=== PATIENT | male | born 1935 | race Caucasian/White ===

== ENCOUNTER 2020-01-30 14:58 | Inpatient (IN) | payer OTHER, MEDICARE ==
[~2020-01-30] VITALS: Ht 157.5 cm; Wt 68.9 kg
--- NOTE | 2020-01-30 15:05 | NUR ---
DREAD from [facility] for noted weakness, confusion and hypotension, to ER bed 8, hooked to monitor, changed to hosp gown, warm blanket provided, patient AAO x 2, breathing even and unlabored. awaiting MD fernando.
--- NOTE | 2020-01-30 15:22 | NUR ---
iv line started blood drawn and sent to lab.
--- NOTE | 2020-01-30 15:33 | NUR ---
DR MORENO AT BEDSIDE FOR EVAL
--- NOTE | 2020-01-30 15:47 | NUR ---
radiology at bedside for chest xray.
[2020-01-30 15:53] LABS: BASOPHILS # (AUTO) 0.1 /CMM (0.0-0.2); EOSINOPHILS % (AUTO) 1.8 % (0.0-6.0); HEMATOCRIT 38 % (39-51); HEMOGLOBIN 12.7 g/dL (13.5-17.5); LYMPHOCYTES # (AUTO) 1.4 /CMM (0.8-4.8); LYMPHOCYTES % (AUTO) 14.2 % (20.0-44.0); MEAN CORPUSCULAR HGB CONC 34 g/dl (31.0-36.0); MEAN CORPUSCULAR VOLUME 88 fL (80-96); MONOCYTES # (AUTO) 0.9 /CMM (0.1-1.30); MONOCYTES % (AUTO) 9.2 % (2.0-12.0); NEUTROPHILS # (AUTO) 7.1 /CMM (1.8-8.9); NEUTROPHILS % (AUTO) 73.8 % (43.0-81.0); PLATELET COUNT (AUTO) 277 /CMM (150-450); RED BLOOD CELL COUNT(AUTO) 4.31 MIL/uL (4.5-6.0); WHITE BLOOD COUNT (AUTO) 9.6 K/uL (4.3-11.0)
[2020-01-30] MEDS ORDERED: LISI-603 PO (15:54)
[2020-01-30] MEDS ORDERED: APIX5TAB PO (15:54)
[2020-01-30] MEDS ORDERED: FURO-145 PO (15:54)
[2020-01-30] MEDS ORDERED: BISA10SU61 RC (15:54)
[2020-01-30] MEDS ORDERED: DIGO125T PO (15:54)
[2020-01-30] MEDS ORDERED: MAGN400O6 PO (15:54)
[2020-01-30] MEDS ORDERED: NA P133E RC (15:54)
[2020-01-30] MEDS ORDERED: IPRA3AMP23 IH (15:54)
[2020-01-30] MEDS ORDERED: ATOR20TA PO (15:54)
[2020-01-30] MEDS ORDERED: SPIR25TA6 PO (15:54)
[2020-01-30] MEDS ORDERED: MONT10TA22 PO (15:54)
[2020-01-30] MEDS ORDERED: ACET-2605 PO (15:54)
[2020-01-30] MEDS ORDERED: POTA20TA83 PO (15:54)
[2020-01-30] MEDS ORDERED: BUDE10.2 IH (15:54)
[2020-01-30] MEDS ORDERED: CARV6.25 PO (15:54)
[2020-01-30] MEDS ORDERED: MULT-447 PO (15:54)
--- NOTE | 2020-01-30 15:54 | NUR ---
RESHMA THAKKAR, PT CAME FROM [facility] ROOM 33A, PCP DR. DEVINE,[facility]
[2020-01-30] MEDS ORDERED: IV NS 0.9% 500 ML BAG IV ONE (16:00)
[2020-01-30 16:01] LABS: CALCIUM, SERUM 8.9 mg/dL (8.5-10.1); CARBON DIOXIDE 29 mmol/L (21-32); CHLORIDE 104 mmol/L (98-107); CREATININE 1.8 mg/dL (0.6-1.3); GLUCOSE 108 mg/dL (74-106); POTASSIUM 4.8 mmol/L (3.5-5.1); SODIUM SERUM 139 mmol/L (136-145); UREA NITROGEN, BLOOD 26 mg/dL (7-18)
[2020-01-30 16:14] LABS: ALANINE AMINOTRANSFERASE 15 U/L (12-78); ALBUMIN 3.9 g/dL (3.4-5.0); ALKALINE PHOSPHATASE 94 U/L (46-116); ASPARTATE AMINOTRANSFERASE 15 U/L (15-37); B-TYPE NATRIURETIC PEPTIDE 4514 PG/ML (0-125); BILIRUBIN,TOTAL 0.7 mg/dL (0.2-1.0); TOTAL PROTEIN, SERUM 7.6 g/dL (6.4-8.2)
--- NOTE | 2020-01-30 16:29 | NUR ---
covid swab done and sent to lab
[2020-01-30 16:52] LABS: C-REACTIVE PROTEIN 0.7 mg/dL (0.0-0.9); CREATINE KINASE, TOTAL 59 U/L (39-308)
[2020-01-30 16:54] LABS: D-DIMER 0.75 mg/L(FEU (0.17-0.50)
--- NOTE | 2020-01-30 17:30 | NUR ---
Jennifer KIRAN gave authorization to admit tracking number #[id number]
--- NOTE | 2020-01-30 17:33 | NUR ---
CALLED FOR TELE BED.
--- NOTE | 2020-01-30 17:36 | NUR ---
paged panel for admission
--- NOTE | 2020-01-30 18:12 | NUR ---
report given to Fabby HUGGINS for digna
[2020-01-30] MEDS ORDERED: ACETAMINOPHEN 325 MG TABLET PO PRN (18:30)
[2020-01-30] MEDS ORDERED: HYDROCODONE/APAP 5/325MG 1 EACH TABLET PO PRN (18:30)
[2020-01-30] MEDS ORDERED: Z GUARD REMEDY 2 OZ OINT TP PRN (18:30)
[2020-01-30] MEDS ORDERED: ONDANSETRON HCL/PF 4 MG/2 ML VIAL IVP PRN (18:30)
--- NOTE | 2020-01-30 18:36 | NUR ---
PROMOTION PRODUCER NOTES RECEIVED NEW ADMISSION IN MEDICALLY STALE CONDITION. VS BP: 168/77 TEMP: 98.3 HR: 67 O2 97% ON ROOM AIR, RESP 18 WILL ENDORSE THE CARE TO ZIGZAG TUNNEL ELASTIC OPERATOR NURSE.
--- NOTE | 2020-01-30 18:46 | NUR ---
wheeled patient via gurney accompanied by RN and emt in no distress. RN at bedside to assume care.
[2020-01-30] MEDS ORDERED: IPRATROPIUM NEB FS 0.5 MG/2.5 ML AMPUL.NEB NEB PRN (19:00)
[2020-01-30] MEDS ORDERED: ALBUTEROL FS 2.5 MG/0.5 ML VIAL.NEB NEB PRN (19:00)
[2020-01-30] MEDS ORDERED: FUROSEMIDE 40 MG/4 ML VIAL IV ONE (19:00)
[2020-01-30 19:17] LABS: C-REACTIVE PROTEIN 1.1 mg/dL (0.0-0.9)
--- NOTE | 2020-01-30 19:30 | NUR ---
HOP TRAINER OPENING NOTES: Received pt in bed awake, A&Ox1, very confused. On isolation precautions for R/O Covid. On tele monitor reading A-fib. On RA, tolerating well. No SOB or respiratory distress noted. Pt brought in from ER during morning shift. IV site on RW #20 patent and flushed. Dressing c/d/i. Head to toe assessment and skin check complete. No issues noted. Safety measures in place. Will continue to monitor.
[2020-01-30 19:38] LABS: DIGOXIN 0.99 ng/mL (0.90-2.00)
[2020-01-30 20:00] VITALS: BP 148/88
--- NOTE | 2020-01-30 20:15 | NUR ---
RN NOTE: 1939: Pt removing tele leads, gown and attempting to walk out of room stating "I need to go to the store". Walked pt back to room and reoriented pt to room, and call light. 1944: Pt continuing to remove leads and walk out of room. Paged FRANKY Kearney for order for SALES REPRESENTATIVE SALES MANAGER restraints. 1948: Orders received for restraints. Noted, carried out and applied restraints. Will continue to monitor.
--- NOTE | 2020-01-30 21:29 | NUR ---
Endorsed to BHAVNA Min for MAURISIO.
--- NOTE | 2020-01-30 21:30 | NUR ---
Received endorsement report from BHAVNA Truong for continuation of care
[2020-01-30] MEDS: ATORVASTATIN 10 MG TABLET PO SCH (22:24)
[2020-01-30] MEDS: MONTELUKAST SODIUM (10MG) 10 MG TABLET PO SCH (22:24)
[2020-01-30] MEDS: ZOLPIDEM TARTRATE 5 MG TABLET PO PRN (23:01)
[2020-01-31] VITALS (7 sets, daily range): BP systolic 123–162; BP diastolic 50–106
[2020-01-31 06:28] LABS: BASOPHILS # (AUTO) 0.1 /CMM (0.0-0.2); BASOPHILS % (AUTO) 0.8 % (0.0-2.0); EOSINOPHILS % (AUTO) 2.4 % (0.0-6.0); HEMATOCRIT 36 % (39-51); HEMOGLOBIN 12.2 g/dL (13.5-17.5); LYMPHOCYTES # (AUTO) 2.5 /CMM (0.8-4.8); LYMPHOCYTES % (AUTO) 28.4 % (20.0-44.0); MEAN CORPUSCULAR HGB CONC 34 g/dl (31.0-36.0); MEAN CORPUSCULAR VOLUME 87 fL (80-96); MONOCYTES # (AUTO) 0.9 /CMM (0.1-1.30); MONOCYTES % (AUTO) 9.7 % (2.0-12.0); NEUTROPHILS # (AUTO) 5.2 /CMM (1.8-8.9); NEUTROPHILS % (AUTO) 58.7 % (43.0-81.0); PLATELET COUNT (AUTO) 262 /CMM (150-450); RED BLOOD CELL COUNT(AUTO) 4.21 MIL/uL (4.5-6.0); WHITE BLOOD COUNT (AUTO) 8.9 K/uL (4.3-11.0)
[2020-01-31 06:44] LABS: CHOLESTEROL 110 mg/dL (<200); HDL CHOLESTEROL 40 mg/dL (40-60); LDL 60 mg/dL (0-99); TRIGLYCERIDES 101 mg/dL (30-150)
--- NOTE | 2020-01-31 06:45 | NUR ---
RN CLOSING NOTE: PATIENT REMAINS IN ROOM. NO SIGNS OF RESPIRATORY DISTRESS. SAFETY MEASURES IMPLEMENTED, BED IN LOWEST POSITION, LOCKED, SIDE RAILS UP, CALL LIGHT WITHIN REACH. ALL NEEDS AND ORDERS ADDRESSED DURING THE SHIFT. ALL DUE MEDS GIVEN ORDERED & SCHEDULED ; PATIENT TOLERATED WELL.PATIENT KEPT CLEAN AND COMFORTABLE WITHIN THE SHIFT. ENDORSED TO INCOMING SHIFT RN FOR CONTINUITY OF CARE.
[2020-01-31 06:49] LABS: CALCIUM, SERUM 9.1 mg/dL (8.5-10.1); CARBON DIOXIDE 27 mmol/L (21-32); CHLORIDE 104 mmol/L (98-107); CREATININE 1.6 mg/dL (0.6-1.3); GLUCOSE 105 mg/dL (74-106); PHOSPHORUS 4.1 mg/dL (2.5-4.9); POTASSIUM 4.2 mmol/L (3.5-5.1); SODIUM SERUM 140 mmol/L (136-145); UREA NITROGEN, BLOOD 29 mg/dL (7-18)
--- NOTE | 2020-01-31 07:30 | NUR ---
RN OPENING NOTE: RECEIVED PATIENT IN ROOM SLEEPING.PATIENT IS ON ROOM AIR, NO SIGNS OF RESPIRATORY DISTRESS. TELE NOTED READING AFIB @ 59-62 .NOTED IV RIGHT WRIST # 20 PATENT AND INTACT. SAFETY MEASURES IMPLEMENTED, BED IN LOWEST POSITION, LOCKED, SIDE RAILS UP, CALL LIGHT WITHIN REACH.WILL CONTINUE TO MONITOR.
[2020-01-31] MEDS: MULTIVITAMINS,THERAGRAN 1 UDTAB TABLET PO SCH (08:35)
[2020-01-31] MEDS: CARVEDILOL 6.25 MG TABLET PO SCH ×2 (08:37→17:12)
[2020-01-31] MEDS ORDERED: SPIRONOLACTONE 25 MG TABLET PO SCH (09:00)
[2020-01-31] MEDS: FLUTICASONE/VILANTEROL 1 EACH BLST.W.DEV IH SCH (09:10)
--- NOTE | 2020-01-31 11:40 | NUR ---
BHAVNA NOTES PATIENT LEFT AGAINST MEDICAL ADVICE (AMA). NOTIFIED. PATIENT SIGNED AMA. PATIENT CALLED A TAXI. COMMAND AND CONTROL SYSTEMS INTEGRATOR WHEELED PATIENT TO SECURITY AND PT TOOK TAXI. Addendum: 01/31/20 at 1926 by NEETA CHAUDHARY RN DISREGARD INCORRECT PATIENT
[2020-01-31] MEDS: APIXABAN 5 MG TABLET PO SCH ×2 (12:31→17:13)
[2020-01-31] MEDS: DIGOXIN 0.125 MG TABLET PO SCH (12:36)
--- NOTE | 2020-01-31 19:27 | NUR ---
N CLOSING NOTE: PATIENT REMAINS IN ROOM .PATIENT IS IN ROOM AIR SATURATING AT 94%. NO SIGNS OF RESPIRATORY DISTRESS. SAFETY MEASURES IMPLEMENTED, BED IN LOWEST POSITION, LOCKED, SIDE RAILS UP, CALL LIGHT WITHIN REACH. ALL NEEDS AND ORDERS ADDRESSED DURING THE SHIFT. ALL DUE MEDS GIVEN ORDERED & SCHEDULED ; PATIENT TOLERATED WELL.PATIENT KEPT CLEAN AND COMFORTABLE WITHIN THE SHIFT. ENDORSED TO INCOMING SHIFT RN FOR CONTINUITY OF CARE.
[2020-01-31] MEDS: MONTELUKAST SODIUM (10MG) 10 MG TABLET PO SCH (21:29)
[2020-01-31] MEDS: ATORVASTATIN 10 MG TABLET PO SCH (21:29)
[2020-02-01] VITALS (7 sets, daily range): BP systolic 116–157; BP diastolic 55–86
[2020-02-01 06:45] LABS: BASOPHILS # (AUTO) 0.1 /CMM (0.0-0.2); BASOPHILS % (AUTO) 1.2 % (0.0-2.0); EOSINOPHILS % (AUTO) 3.2 % (0.0-6.0); HEMATOCRIT 36 % (39-51); HEMOGLOBIN 12.2 g/dL (13.5-17.5); LYMPHOCYTES # (AUTO) 2.1 /CMM (0.8-4.8); LYMPHOCYTES % (AUTO) 28.3 % (20.0-44.0); MEAN CORPUSCULAR HGB CONC 34 g/dl (31.0-36.0); MEAN CORPUSCULAR VOLUME 87 fL (80-96); MONOCYTES # (AUTO) 0.7 /CMM (0.1-1.30); MONOCYTES % (AUTO) 9.8 % (2.0-12.0); NEUTROPHILS # (AUTO) 4.2 /CMM (1.8-8.9); NEUTROPHILS % (AUTO) 57.5 % (43.0-81.0); PLATELET COUNT (AUTO) 221 /CMM (150-450); RED BLOOD CELL COUNT(AUTO) 4.16 MIL/uL (4.5-6.0); WHITE BLOOD COUNT (AUTO) 7.3 K/uL (4.3-11.0)
[2020-02-01 06:50] LABS: ALBUMIN 3.6 g/dL (3.4-5.0); BILIRUBIN,TOTAL 0.7 mg/dL (0.2-1.0); CALCIUM, SERUM 8.4 mg/dL (8.5-10.1); CREATININE 1.1 mg/dL (0.6-1.3); MAGNESIUM 2.3 mg/dL (1.8-2.4); PHOSPHORUS 3.4 mg/dL (2.5-4.9); TOTAL PROTEIN, SERUM 7.2 g/dL (6.4-8.2)
--- NOTE | 2020-02-01 07:10 | NUR ---
RN OPENING NOTE: RECEIVED PATIENT IN ROOM SLEEPING.PATIENT IS ON ROOM AIR, NO SIGNS OF RESPIRATORY DISTRESS. TELE NOTED READING AFIB @ 59-62 .NOTED IV RIGHT HAND # 22, PATENT AND INTACT. SAFETY MEASURES IMPLEMENTED, BED IN LOWEST POSITION, LOCKED, SIDE RAILS UP X 2, CALL LIGHT WITHIN REACH.WILL CONTINUE TO MONITOR.
[2020-02-01] MEDS: MULTIVITAMINS,THERAGRAN 1 UDTAB TABLET PO SCH (08:20)
[2020-02-01] MEDS: APIXABAN 5 MG TABLET PO SCH ×2 (08:40→17:38)
[2020-02-01] MEDS: CARVEDILOL 6.25 MG TABLET PO SCH ×2 (08:41→17:38)
[2020-02-01] MEDS: FLUTICASONE/VILANTEROL 1 EACH BLST.W.DEV IH SCH (09:10)
[2020-02-01 09:43] LABS: IRON, SERUM 62 ug/dl (50-175); TOTAL IRON BINDING CAPACITY 239 ug/dl (250-450)
[2020-02-01 09:57] LABS: FERRITIN 56 ng/mL (8-388)
[2020-02-01] MEDS: DIGOXIN 0.125 MG TABLET PO SCH (13:12)
--- NOTE | 2020-02-01 18:41 | NUR ---
RN CLOSING NOTES- WILL ENDORSE PATIENT TO PM NURSE. PATIENT REMAINS IN ROOM COMFORTABLE . ROOM AIR SATURATING AT 100 %. PATIENT ON TELE READING AFIB @ 56-61'S. NO SIGNS OF RESPIRATORY DISTRESS. RIGHT HAND IV #22. SAFETY MEASURES IMPLEMENTED, BED IN LOWEST POSITION, LOCKED, SIDE RAILS UP X 2., CALL LIGHT WITHIN EASY REACH. ALL NEEDS AND ORDERS ADDRESSED AND MET DURING THE SHIFT.
[2020-02-01] MEDS: ATORVASTATIN 10 MG TABLET PO SCH (21:19)
[2020-02-01] MEDS: MONTELUKAST SODIUM (10MG) 10 MG TABLET PO SCH (21:19)
[2020-02-01] MEDS: ZOLPIDEM TARTRATE 5 MG TABLET PO PRN (21:20)
[2020-02-02] VITALS (9 sets, daily range): BP systolic 121–157; BP diastolic 72–92
[2020-02-02 06:24] LABS: BASOPHILS # (AUTO) 0.1 /CMM (0.0-0.2); BASOPHILS % (AUTO) 1.1 % (0.0-2.0); EOSINOPHILS % (AUTO) 3.4 % (0.0-6.0); HEMATOCRIT 40 % (39-51); HEMOGLOBIN 13.1 g/dL (13.5-17.5); LYMPHOCYTES % (AUTO) 24.6 % (20.0-44.0); MEAN CORPUSCULAR HGB CONC 33 g/dl (31.0-36.0); MEAN CORPUSCULAR VOLUME 89 fL (80-96); MONOCYTES # (AUTO) 0.7 /CMM (0.1-1.30); MONOCYTES % (AUTO) 8.9 % (2.0-12.0); NEUTROPHILS # (AUTO) 5.1 /CMM (1.8-8.9); PLATELET COUNT (AUTO) 207 /CMM (150-450); RED BLOOD CELL COUNT(AUTO) 4.53 MIL/uL (4.5-6.0); WHITE BLOOD COUNT (AUTO) 8.3 K/uL (4.3-11.0)
[2020-02-02 07:06] LABS: ALBUMIN 3.5 g/dL (3.4-5.0); BILIRUBIN,TOTAL 0.8 mg/dL (0.2-1.0); CALCIUM, SERUM 9.1 mg/dL (8.5-10.1); MAGNESIUM 2.6 mg/dL (1.8-2.4); PHOSPHORUS 3.2 mg/dL (2.5-4.9); POTASSIUM 4.7 mmol/L (3.5-5.1); TOTAL PROTEIN, SERUM 7.8 g/dL (6.4-8.2)
--- NOTE | 2020-02-02 07:15 | NUR ---
RN OPENING NOTE PATIENT IN BED, NOT IN ACUTE DISTRESS. DENIES ANY PAIN OR DISCOMFORT. BREATHING EVEN, NO SOB NOTED. ALL NEEDS ATTENDED. SAFETY MEASURES INTACT. WILL CONT TO MONITOR
[2020-02-02] MEDS: CARVEDILOL 6.25 MG TABLET PO SCH ×2 (10:31→17:00)
[2020-02-02] MEDS: MULTIVITAMINS,THERAGRAN 1 UDTAB TABLET PO SCH (10:31)
[2020-02-02] MEDS: APIXABAN 5 MG TABLET PO SCH ×2 (10:32→17:46)
[2020-02-02] MEDS: DIGOXIN 0.125 MG TABLET PO SCH (13:17)
[2020-02-02] MEDS: FLUTICASONE/VILANTEROL 1 EACH BLST.W.DEV IH SCH (13:17)
--- NOTE | 2020-02-02 19:20 | NUR ---
RN CLOSING NOTES- PATIENT REMAINS IN ROOM COMFORTABLE . ROOM AIR SATURATING AT 100 %. PATIENT ON TELE READING AFIB @ 56-61'S. NO SIGNS OF RESPIRATORY DISTRESS. RIGHT HAND IV #22 INTACT. SAFETY MEASURES IMPLEMENTED, BED IN LOWEST POSITION, LOCKED, SIDE RAILS UP X 2., CALL LIGHT WITHIN EASY REACH. ALL NEEDS AND ORDERS ADDRESSED AND MET DURING THE SHIFT. ENDORSED TO HEALTH IT SPECIALIST NURSE
[2020-02-02] MEDS: ATORVASTATIN 10 MG TABLET PO SCH (21:06)
[2020-02-02] MEDS: MONTELUKAST SODIUM (10MG) 10 MG TABLET PO SCH (21:06)
[2020-02-03] VITALS (8 sets, daily range): BP systolic 115–156; BP diastolic 75–88
--- NOTE | 2020-02-03 06:30 | NUR ---
RN RESOURCE NURSE NOTES AWAKE & RESPONSIVE. NOT IN ANY DISTRESS. NO SOB NOTED. DENIES ANY PAIN OR DISCOMFORT AT THIS TIME. ON TELE AFIB @ 60S WITH IV-HL PATENT & INTACT. AM CARE DONE. MONITORED ACCORDINGLY. CALL LIGHT WITHIN REACH. BED IN LOWEST POSITION. SR UP X 2 WITH BED ALARM ON FOR SAFETY. WILL ENDORSE TO NEXT SHIFT.
--- NOTE | 2020-02-03 07:25 | NUR ---
DENTAL ASSOCIATE NOTES RECEIVED PATIENT IN BED, ALERT AND AWAKE ORIENTED X2. HOB ELEVATED. NO SOB OBSERVED. ON ROOM AIR WITH SPO2 OF 98%. DENIES ANY C/O PAIN NOR DISCOMFORT AT THIS TIME. RIGHT HAND # 20 SL INTACT AND PATENT. BED IN LOWEST POSITION, LOCKED. LESLY SIDERAILS UP X2. BED ALARM ON. CALL LIGHT WITHIN REACH.
[2020-02-03] MEDS: CARVEDILOL 6.25 MG TABLET PO SCH ×2 (08:35→17:29)
[2020-02-03] MEDS: MULTIVITAMINS,THERAGRAN 1 UDTAB TABLET PO SCH (08:35)
[2020-02-03] MEDS: FLUTICASONE/VILANTEROL 1 EACH BLST.W.DEV IH SCH (08:35)
[2020-02-03] MEDS: APIXABAN 5 MG TABLET PO SCH ×2 (08:36→17:30)
[2020-02-03] MEDS: DIGOXIN 0.125 MG TABLET PO SCH (12:18)
--- NOTE | 2020-02-03 18:40 | NUR ---
MS RN NOTES PATIENT RESTING COMFORTABLY IN BED WATCHING TV. HOB ELEVATED. NO S/S OF RESPIRATORY DISTRESS.REMAIN ON ROOM AIR WITH SPO2 OF 98-100%. NO COUGH/SOB/FEVER OBSERVED DURING THE SHIFT. DENIES ANY C/O PAIN NOR DISCOMFORT AT THIS TIME. RIGHT HAND # 20 SL INTACT AND PATENT. CONTACT/DROPLET PRECAUTIONS OBSERVED AT ALL TIMES. BED IN LOWEST POSITION, LOCKED. BED SIDERAILS UP X2. BED ALARM ON. CALL LIGHT WITHIN REACH. IN NO APPARENT DISTRESS.
--- NOTE | 2020-02-03 19:00 | NUR ---
RECEIVED PATIENT IN HIS BED ALERT AND ORIENTATED TO SELF AND SURRONDINGS. WRIST RESTRAINTS OFF NOTED HOB ELEVATED OFFERED HIM WATER AND HE DRANK W/O PROBLEMS. ENJOYS CONVERSATIONS BED ALARM ON
[2020-02-03] MEDS: ATORVASTATIN 10 MG TABLET PO SCH (21:36)
[2020-02-03] MEDS: MONTELUKAST SODIUM (10MG) 10 MG TABLET PO SCH (21:36)
[2020-02-04] VITALS: BP 125/60
[2020-02-04 04:00] VITALS: BP 134/75
--- NOTE | 2020-02-04 06:18 | NUR ---
ENDING NOTES: CONFUSED ANT TIMES HE WILL SWING HIS ARM AND TRY TO KICK THE NURSE AND CALL HER NAMES. BED ALARM ON HE WILL ATTEMPT TO GET OOB AND UNABLE TO TALK HIM IN TO GOING BACK TO BED. ALOOWED HIM TO WALK AROUND HIS ROOM WITH NURSE AT HIS SIDE, UNSTEADY GAIT HE IS INCONTINENT KEPT CLEAN AND DRY.
--- NOTE | 2020-02-04 07:30 | NUR ---
RN OPENING NOTES RECEIVED PATIENT RESTING IN BED. A/O X2 WITH PERIODS OF CONFUSION. PER PM NURSE PATIENT SWINGS HIS ARMS AT NURSES. DURING MY ASSESSMENT, PATIENT WAS COOPERATIVE BUT CONFUSED. PATIENT IS ON ROOM AIR, SATURATING WELL, NO RESPIRATORY DISTRESS NOTED. BREATHING IS EVEN AND UNLABORED. PATIENT IS FALL RISK, PRECAUTIONS TAKEN, BED ALARMED, LOCKED AND LOWERED, SAFETY MAINTAINED, CALL LIGHT WITHIN REACH, WILL CONTINUE TO MONITOR CLOSELY.
[2020-02-04 08:00] VITALS: BP 175/96
[2020-02-04] MEDS: CARVEDILOL 6.25 MG TABLET PO SCH ×2 (09:00→16:57)
[2020-02-04] MEDS: MULTIVITAMINS,THERAGRAN 1 UDTAB TABLET PO SCH (09:01)
[2020-02-04] MEDS: APIXABAN 5 MG TABLET PO SCH ×2 (09:02→16:57)
[2020-02-04] MEDS: FLUTICASONE/VILANTEROL 1 EACH BLST.W.DEV IH SCH (09:03)
--- NOTE | 2020-02-04 11:21 | NUR ---
RN NOTE CALLED LAB TO FOLLOW UP WITH THE COVID RESULTS. UNKNOWN WHY THE RESULT IS STILL PENDING, LAB WILL FOLLOW UP AND LET ME KNOW.
[2020-02-04 12:00] VITALS: BP_SYST 144; BP_SYST 151; BP_DIAS 77; BP_DIAS 85
[2020-02-04] MEDS: DIGOXIN 0.125 MG TABLET PO SCH (12:28)
--- NOTE | 2020-02-04 13:38 | NUR ---
PATIENT COVID NEGATIVE,NGHIA PADRON NOTIFIED ,NURSING SUP NOTIFIED ,PER CM NELIDA NEED CLEARANCE FROM [facility] AND MIGHT TAKE A DAY,NURSING SUP NOTIFIED ,AWAITS CLEAN RM TO NON COVID UNIT.
--- NOTE | 2020-02-04 14:57 | NUR ---
RN NOTE PATIENT COVID RESULTS CAME BACK NEGATIVE. TRANSFERRED PATIENT TO ROOM 202, CLEAN UNIT. ENDORSED TO DEDRICK HUGGINS FOR CONTINUITY OF CARE. SAFETY MAINTAINED, CALL LIGHT WITHIN REACH, ALL PATIENT NEEDS MET.
--- NOTE | 2020-02-04 15:00 | NUR ---
MS RN NOTE PATIENT ARRIVED BY WHEELCHAIR FROM [facility]. REPORT RECEIVED FROM EDUARDO HUGGINS. ASSISTED PATIENT INTO BED. PATIENT IN BED RESTING COMFORTABLY. PATIENT IN NO ACUTE DISTRESS. NO SOB NOTED. PATIENT BREATHING IS EVEN AND UNLABORED. PATIENT BED ALARM IS ON. SAFETY PRECAUTIONS IN PLACE. PATIENT BED IS LOCKED AND IN LOWEST POSITION. CALL LIGHT WITHIN REACH. WILL CONTINUE TO MONITOR.
[2020-02-04 16:00] VITALS: BP 112/68
--- NOTE | 2020-02-04 18:49 | NUR ---
MS RN CLOSING NOTE PATIENT IN BED RESTING COMFORTABLY. PATIENT IN NO ACUTE DISTRESS. NO SOB NOTED. PATIENT BREATHING IS EVEN AND UNLABORED. PATIENT KEPT CLEAN, DRY AND COMFORTABLE THROUGHOUT SHIFT. PATIENT BED ALARM IS ON. SAFETY PRECAUTIONS IN PLACE. PATIENT BED IS LOCKED AND IN LOWEST POSITION. CALL LIGHT WITHIN REACH. WILL ENDORSE CARE TO PM SHIFT FOR MAURISIO.
[2020-02-04 20:00] VITALS: BP 130/66
--- NOTE | 2020-02-04 20:00 | NUR ---
MS RN OPENING NOTES RECEIVED PATIENT IN BED, AWAKE, CONFUSED A/0 X2, BREATHING AT ROOM AIR, UNLABORED BREATHING, NO SIGNS OF RESPIRATORY DISTRESS, IV ACCESS RIGH HAND #20G, PATIENT BED ALARM IS ON, SIDE RAILS UP FOR SAFETY.
[2020-02-04] MEDS: ATORVASTATIN 10 MG TABLET PO SCH (21:13)
[2020-02-04] MEDS: MONTELUKAST SODIUM (10MG) 10 MG TABLET PO SCH (21:14)
--- NOTE | 2020-02-05 06:29 | NUR ---
MS RN CLOSING NOTES ENDORSED PATIENT IN BED, AWAKE, CONFUSED A/0 X2, BREATHING AT ROOM AIR, UNLABORED BREATHING, NO SIGNS OF RESPIRATORY DISTRESS, IV ACCESS RIGH HAND #20G, NO REDNESS OR INFILTRATION NOTED, PATIENT BED ALARM IS ON, SIDE RAILS UP FOR SAFETY, DUE MEDS GIVEN.
--- NOTE | 2020-02-05 07:23 | NUR ---
MS RN OPENING NOTE PATIENT IN BED RESTING COMFORTABLY. PATIENT IN NO ACUTE DISTRESS. NO SOB NOTED. PATIENT BREATHING IS EVEN AND UNLABORED. PATIENT BED ALARM IS ON. SAFETY PRECAUTIONS IN PLACE. PATIENT BED IS LOCKED AND IN LOWEST POSITION. CALL LIGHT WITHIN REACH. WILL CONTINUE TO MONITOR.
[2020-02-05 08:00] VITALS: BP 134/70
[2020-02-05] MEDS: FLUTICASONE/VILANTEROL 1 EACH BLST.W.DEV IH SCH (08:09)
[2020-02-05] MEDS: APIXABAN 5 MG TABLET PO SCH ×2 (08:10→16:56)
[2020-02-05] MEDS: MULTIVITAMINS,THERAGRAN 1 UDTAB TABLET PO SCH (08:10)
[2020-02-05] MEDS: CARVEDILOL 6.25 MG TABLET PO SCH ×2 (08:10→16:57)
[2020-02-05 16:00] VITALS: BP 115/81
--- NOTE | 2020-02-05 16:00 | NUR ---
MS RN NOTE PER ASSET CARD CLERK NELIDA PATIENT STILL PENDING CLEARANCE TO SNF. PATIENT IN NO ACUTE DISTRESS. NO SOB NOTED. PATIENT BREATHING IS EVEN AND UNLABORED. WILL CONTINUE TO MONITOR.
--- NOTE | 2020-02-05 18:30 | NUR ---
MS RN CLOSING NOTE PATIENT IN BED RESTING COMFORTABLY. PATIENT IN NO ACUTE DISTRESS. NO SOB NOTED. PATIENT BREATHING IS EVEN AND UNLABORED. PATIENT KEPT CLEAN, DRY, AND COMFORTABLE THROUGHOUT SHIFT. PATIENT BED ALARM IS ON. SAFETY PRECAUTIONS IN PLACE. PATIENT BED IS LOCKED AND IN LOWEST POSITION. CALL LIGHT WITHIN REACH. WILL ENDORSE CARE TO PM SHIFT FOR MAURISIO.
--- NOTE | 2020-02-05 19:24 | NUR ---
MS/RN OPENING NOTES: RECEIVED PATIENT IN BED RESTING COMFORTABLY. VERBALLY RESPONSIVE AND TORRIE TO MAKE NEEDS KNOWN. A/OX2-3 WITH EPISODES OF CONFUSION. PATIENT IN NO ACUTE DISTRESS. NO SOB NOTED. PATIENT BREATHING IS EVEN AND UNLABORED. PATIENT BED ALARM IS ON. SAFETY PRECAUTIONS ARE IN PLACE. PATIENT BED IS LOCKED AND IN LOWEST POSITION. CALL LIGHT WITHIN REACH. WILL CONTINUE TO MONITOR PT. ACCORDINGLY.
[2020-02-05 20:11] VITALS: BP 129/68
[2020-02-05 20:19] VITALS: BP 129/68
[2020-02-05] MEDS: ATORVASTATIN 10 MG TABLET PO SCH (21:10)
[2020-02-05] MEDS: MONTELUKAST SODIUM (10MG) 10 MG TABLET PO SCH (21:10)
--- NOTE | 2020-02-06 | NUR ---
MS/RN NOTES: PT. TRANSFERRED TO ROOM 204-1. PT STABLE.
[2020-02-06 06:50] LABS: BASOPHILS # (AUTO) 0.1 /CMM (0.0-0.2); BASOPHILS % (AUTO) 1.4 % (0.0-2.0); EOSINOPHILS % (AUTO) 3.3 % (0.0-6.0); HEMATOCRIT 33 % (39-51); HEMOGLOBIN 11.1 g/dL (13.5-17.5); LYMPHOCYTES # (AUTO) 2.2 /CMM (0.8-4.8); LYMPHOCYTES % (AUTO) 27.7 % (20.0-44.0); MEAN CORPUSCULAR HGB CONC 33 g/dl (31.0-36.0); MEAN CORPUSCULAR VOLUME 87 fL (80-96); MONOCYTES # (AUTO) 0.7 /CMM (0.1-1.30); MONOCYTES % (AUTO) 9.5 % (2.0-12.0); NEUTROPHILS # (AUTO) 4.6 /CMM (1.8-8.9); NEUTROPHILS % (AUTO) 58.1 % (43.0-81.0); PLATELET COUNT (AUTO) 209 /CMM (150-450); WHITE BLOOD COUNT (AUTO) 7.9 K/uL (4.3-11.0)
--- NOTE | 2020-02-06 06:55 | NUR ---
MS/RN CLOSING NOTES: PATIENT REMAINS IN BED RESTING COMFORTABLY. SLEPT WELL THROUGH THE NIGHT, KEPT WARM AND COMFORTABLE, CLEAN AND DRY. REMAINS VERBALLY RESPONSIVE AND TORRIE TO MAKE NEEDS KNOWN. A/OX2-3. ALL NEEDS MET AND RENDERED. PATIENT IN NO ACUTE DISTRESS. NO SOB NOTED. PATIENT BREATHING IS EVEN AND UNLABORED. GAVE PT PRUNE JUICE, WILL ENDORSE TO DAY SHIFT TO GIVE STOOL SOFTENER IF PT DOESN'T HAVE BM. PATIENT BED ALARM IS ON. SAFETY PRECAUTIONS ARE KEPT IN PLACE. PATIENT BED IS LOCKED AND IN LOWEST POSITION. CALL LIGHT WITHIN REACH. WILL ENDORSE TO AM SHIFT FOR MAURISIO.
[2020-02-06 07:08] LABS: ALBUMIN 3.3 g/dL (3.4-5.0); BILIRUBIN,TOTAL 0.6 mg/dL (0.2-1.0); CALCIUM, SERUM 8.5 mg/dL (8.5-10.1); MAGNESIUM 2.2 mg/dL (1.8-2.4); PHOSPHORUS 3.1 mg/dL (2.5-4.9); TOTAL PROTEIN, SERUM 6.5 g/dL (6.4-8.2)
--- NOTE | 2020-02-06 07:26 | NUR ---
MS RN NOTES RECEIVED PT IN BED, ASLEEP, EASILY AROUSED, A/O X2-3. PT TOLERATING RA, WITH NO ACUTE RESPIRATORY DISTRESS NOTED. PT DENIES ANY PAIN OR DISCOMFORT AT THIS TIME. PT DENIES ANY CONCERNS OR QUESTIONS WELL. R HAND G20, FLUSHED WITH NS, INTACT AND OPERATIONAL. PT KEPT COMFORTABLE IN BED. CALL LIGHT KEPT WITHIN REACH. PT'S BED IN LOWEST, LOCKED POSITION WITH SR X3. WILL CONTINUE PLAN OF CARE.
[2020-02-06 08:00] VITALS: BP 152/75
[2020-02-06] MEDS: CARVEDILOL 6.25 MG TABLET PO SCH ×2 (08:35→17:05)
[2020-02-06] MEDS: APIXABAN 5 MG TABLET PO SCH ×2 (08:37→17:06)
[2020-02-06] MEDS: MULTIVITAMINS,THERAGRAN 1 UDTAB TABLET PO SCH (08:40)
[2020-02-06] MEDS: FLUTICASONE/VILANTEROL 1 EACH BLST.W.DEV IH SCH (08:46)
--- NOTE | 2020-02-06 09:44 | NUR ---
MS RN NOTES SEEN AND EVALUATED BY HOSPITALIST/CC, MADE AWARE REGARDING NO BM SINCE 01/30/20. PER CC WILL PUT ORDERS IN. RN OFFERED PRUNE JUICE AT BEDSIDE. WILL CONTINUE TO MONITOR.
[2020-02-06 16:30] VITALS: BP 128/82
--- NOTE | 2020-02-06 18:32 | NUR ---
MS RN NOTES PT IN BED, INTERMITTENTLY DOZING OFF, EASILY AROUSED, A/O X2-3. PT TOLERATING RA, WITH NO ACUTE RESPIRATORY DISTRESS NOTED. PT DENIES ANY PAIN OR DISCOMFORT AT THIS TIME. PIV TO R HAND G20, FLUSHED WITH NS, INTACT AND OPERATIONAL. PT KEPT COMFORTABLE IN BED. ALL NEEDS AND CARE ATTENDED. CALL LIGHT KEPT WITHIN REACH. PT'S BED IN LOWEST, LOCKED POSITION WITH SR X3. WILL ENDORSE TO INCOMING NIGHT NURSE FOR DISCHARGE AT 8PM TONIGHT.
--- NOTE | 2020-02-06 19:20 | NUR ---
MS/RN OPENING NOTES: RECEIVED PATIENT IN BED RESTING COMFORTABLY. VERBALLY RESPONSIVE AND TORRIE TO MAKE NEEDS KNOWN. A/OX2-3 WITH EPISODES OF CONFUSION. PATIENT IN NO ACUTE DISTRESS. NO SOB NOTED. PATIENT BREATHING IS EVEN AND UNLABORED. RIGHT HAND IV #20 IS INTACT, PATENT AND FLUSHING WELL. PT TO BE DC TONIGHT BACK TO SNF AROUND 1999 PER DAY SHIFT RN. ALL BELONGINGS LIST CHECKED AND SIGNED, REPORT GIVEN TO CLARY RECEIVING RN FROM SNF, EARLIER IN THE DAY SHIFT. PATIENT BED ALARM IS ON. SAFETY PRECAUTIONS ARE IN PLACE. PATIENT BED IS LOCKED AND IN LOWEST POSITION. CALL LIGHT WITHIN REACH. WILL CONTINUE TO MONITOR PT. ACCORDINGLY.
[2020-02-06 20:00] VITALS: BP 146/74
--- NOTE | 2020-02-06 20:15 | NUR ---
MS/TRUSS BUILDER NOTES: [facility] ARRIVED AT 2004. ALL BELONGINGS LIST AND PAPER, WELL PT. EDUCATION INFORMATION IS GIVEN AND IN THE DC PACKET. REPORT WAS GIVEN ALREADY TO RN AT [facility] BY THE DAY SHIFT RN. IV ON THE RIGHT HAND #20G REMOVED. PT. CLEANED AND STABLE. VS TAKEN AND DOCUMENTED. BP: 146/74. HR:61 RR:18 TEMP: 98.2 SATURATING AT 98 ON ROOM AIR. NO DISTRESS NOTED. NO SOB. NO C/O PAIN AT THIS TIME. PT LEFT UNIT AT 2016, IN STABLE CONDITION AND VIA GURNEY.
== END 2020-02-06 21:04 | DRG 194 ==
LOC: EDSEX 14:58 → ER 15:05 → TELE1 18:09 → MEDSG1 02-03 10:57 → MEDSG2 02-04 14:37
PROVIDERS: ADMIT Nurse Practitioner Acute Care; ATTEND Nurse Practitioner Acute Care
DX: I13.0 Hypertensive heart and chronic kidney disease with heart failure and stage 1 through stage 4 chronic kidney disease, or unspecified chronic kidney disease (principal); N17.0 Acute kidney failure with tubular necrosis; N18.9 Chronic kidney disease, unspecified; I48.91 Unspecified atrial fibrillation; I42.9 Cardiomyopathy, unspecified; D68.69 Other thrombophilia; R53.2 Functional quadriplegia; I50.31 Acute diastolic (congestive) heart failure; J44.9 Chronic obstructive pulmonary disease, unspecified; I21.A1 Myocardial infarction type 2; D64.9 Anemia, unspecified
CPT/HCPCS: 36415; 71045-TC; 80048-TC; 80053-TC; 80061-TC; 80162-TC; 82550-TC; 82728-TC; 83540-TC; 83605-TC; 83615-TC; 83735-TC; 83880; 84100-TC; 84484-TC; 85025-TC; 85378-TC; 85730-TC; 86140-TC; 87040-TC; 87081-TC; 93307-TC; G0378; J1940; J7040; J7060; U0003-CS